=== PATIENT | female | born 1985 | race African-American/Black ===

== ENCOUNTER 2017-10-14 00:40 | Emergency (ER) | payer MEDICAID ==
[~2017-10-14] VITALS: Ht 175.3 cm; Wt 61.2 kg
--- NOTE | 2017-10-14 01:00 | NUR ---
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 PER MD INSTRUCTED PT TO GO TO ER FOR EVAL. N/V AND RINGING NOTED. PATIENT IS AAOX4, NAD NOTED. VSS. SKIN WARM AND DRY. AMBULATORY WITH STEADY GAIT.
[2017-10-14] MEDS ORDERED: METOCLOPRAMIDE HCL 10 MG/2 ML VIAL ONE (01:25)
[2017-10-14] MEDS ORDERED: SUMATRIPTAN SUCCINATE 6 MG/0.5 ML VIAL SQ ONE (01:25)
--- NOTE | 2017-10-14 01:33 | NUR ---
PT TO CT.
[2017-10-14] MEDS: SUMATRIPTAN SUCCINATE 6 MG/0.5 ML VIAL SQ ONE (01:49)
[2017-10-14] MEDS: IV NS 0.9% 1,000 ML BAG IV ONE (01:50)
[2017-10-14] MEDS: METOCLOPRAMIDE HCL 10 MG/2 ML VIAL IV ONE (01:52)
--- NOTE | 2017-10-14 01:53 | NUR ---
MEDICATED PATIENT ORDERED BY DR QUAN.
--- NOTE | 2017-10-14 02:40 | NUR ---
IV removed. Catheter intact and site benign. Pressure and 4x4 applied to site. No bleeding noted. Patient discharged to home in stable condition. Written and verbal after care instructions given. Patient verbalizes understanding of instruction. Patient is ambulatory with steady gait, vss. nad noted. no further complaints.
[2017-10-14 02:41] VITALS: BP 122/74
== END 2017-10-14 02:42 | disposition home or self-care (01) ==
LOC: ER 00:43
DX: S09.8XXA Other specified injuries of head, initial encounter (principal); G43.909 Migraine, unspecified, not intractable, without status migrainosus; F41.9 Anxiety disorder, unspecified; Z88.6 Allergy status to analgesic agent; J45.909 Unspecified asthma, uncomplicated; Z76.0 Encounter for issue of repeat prescription; W21.07XA Struck by softball, initial encounter; Y93.61 Activity, american tackle football; Y92.89 Other specified places as the place of occurrence of the external cause; Y99.8 Other external cause status
CPT/HCPCS: 70450; 96361; 96372; 96374; 99284; A4606; J2765; J3030; J7030; Z7610